=== PATIENT | female | born 1970 | race Caucasian/White ===

== ENCOUNTER → 2016-06-21 | Outpatient (CLI) | payer SELFPAY | END | disposition home or self-care (01) | LOC: LABWHC1 15:51 | PROVIDERS: ATTEND Obstetrics & Gynecology | DX: N83.8 Other noninflammatory disorders of ovary, fallopian tube and broad ligament (principal) | CPT/HCPCS: 36415; 86304 ==

== ENCOUNTER → 2016-07-17 | Outpatient (CLI) | payer BC ==
--- NOTE | 2016-07-17 20:36 | CONS ---
DATE OF CONSULTATION: 07/17/2016 REASON FOR CONSULTATION: Obstructive sleep apnea/insomnia. A 45-year-old female patient, a primary of Dr. Ernesto Ortiz is coming in with multiple complaints. The patient reports having very poor sleep quality. She has been having this problem for many years. She has been suffering from chronic anxiety and depression and occasional panic attacks. She was morbidly obese in the past and she has undergone gastric bypass surgery. She lost more than 100 pounds. 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 She is having issues with maintaining a good sleep schedule. There are certain days where the patient cannot sleep for more than a few hours and other days when she wants to sleep much more. She typically goes to bed between 9:00 p.m. and midnight, and she wakes up at 4 to 6:00 a.m. in the morning. She averages around 4 to 6 hours of sleep and sometimes it takes more than 30 minutes to fall sleep. She gets anxious. Her mind races and she gets different thoughts which prevent her from going to sleep and this makes her quite anxious. She also has history of sleepwalking and night terrors. Occasionally she has also nightmares over the years. She grind her teeth and she wears a bite block in that regard. She has positive family history for obstructive sleep apnea. She has been taking a combination of Lexapro and Xanax for anxiety. She takes 10 mg of Ambien to help her for sleep induction and maintenance. She is hypothyroid and she is on thyroid hormone replacement. Her current [place] score is 11. No reflux. No heartburn. No chest pain. No shortness of breath during sleep. She does snore. Unsure if she quits breathing at night. PAST MEDICAL HISTORY: 1. Depression/anxiety/panic. 2. Hypertension. 3. Obesity status post gastric bypass surgery. 4. Hypertension. 5. Hypothyroidism. 6. Grinding of the teeth/bruxism. Surgical history includes gastric bypass surgery, cholecystectomy and surgery on a broken tibia and fibula. SOCIAL HISTORY: The patient is a smoker one pack of cigarettes a day. She drinks beer 2 to 3 times a week. No history of substance abuse. She drinks coffee in excess, more so in the morning and not in the afternoon or evening time. FAMILY HISTORY: Positive for sleep apnea. REVIEW OF SYSTEMS: Twelve-point review of systems was done. Positive findings are all mentioned above in the history of present illness. Outpatient medications include: 1. Synthroid 0.125 mcg p.o. daily. 2. ( ) 25 mcg p.o. daily. 3. Ambien 10 mg at bedtime. 4. Cytomel 10 mg daily. 5. Lexapro 40 mg p.o. daily. 6. Lisinopril 10 mg p.o. daily. 7. Omeprazole 40 mg p.o. daily. DRUG ALLERGIES NOT KNOWN. BP is 125/75, pulse 66, respirations 16, temperature 98.7, saturation 99% on room air. Weight is 197. Height is 63 inches. De Graff score is 11. Neck size 14 inches, BMI is 34.8. Weight is 197. Height is 63 inches. GENERAL APPEARANCE: Calm, comfortable. HEENT: Mallampati Class IV. There is no goiter, neck mass. LUNGS: Clear to auscultation. HEART: Sounds are regular rate and rhythm. Normal S1, S2, no S3, no murmurs. ABDOMEN: Soft, nontender. No organomegaly. EXTREMITIES: No edema, cyanosis, or clubbing. IMPRESSION: Poor sleep quality with various factors affecting this patient's sleep in general, more significant contributing factors are A) Chronic anxiety/panic; B) Occasional sleepwalking and night terrors; C) Nightmares, D) Bruxism and E) Possible obstructive sleep apnea. In addition, the patient is suspected to have a component of insomnia, which is a comorbid insomnia related to her various comorbidities most significant of which are depression and anxiety and panic. PLAN: 1. Will proceed with a screening polysomnogram to rule out obstructive sleep apnea and at the same time, will assess the patient's sleep quality, sleep architectures, sleep maintenance and sleep fragmentation. Based on that, will make further recommendations regarding treatment. 2. Keep Ambien for now. 3. Encourage regulating sleep hygiene as much as possible. 4. Avoid alcoholic beverages late at nighttime. 5. Avoid caffeine intake after 2:00 p.m. every day. 6. Will continue to follow and make further recommendations based on results of the sleep study.
== END | disposition home or self-care (01) ==
LOC: SLEEP 15:45
PROVIDERS: ATTEND Internal Medicine Critical Care Medicine
DX: G47.33 Obstructive sleep apnea (adult) (pediatric) (principal); G47.10 Hypersomnia, unspecified; G47.00 Insomnia, unspecified; F41.8 Other specified anxiety disorders; F32.9 Major depressive disorder, single episode, unspecified; F41.0 Panic disorder [episodic paroxysmal anxiety]; F17.200 Nicotine dependence, unspecified, uncomplicated; Z79.899 Other long term (current) drug therapy; F51.3 Sleepwalking [somnambulism]; F51.4 Sleep terrors [night terrors]; I10 Essential (primary) hypertension; E03.9 Hypothyroidism, unspecified; E66.9 Obesity, unspecified; Z68.34 Body mass index [BMI] 34.0-34.9, adult; Z98.84 Bariatric surgery status
CPT/HCPCS: 99211

== ENCOUNTER → 2016-07-30 | Outpatient (CLI) | payer BC ==
--- NOTE | 2016-07-30 07:49 | US ---
EXAMINATION TYPE: US pelvis complete transvag DATE OF EXAM: 07/30/2016 7:35 AM COMPARISON: CT in PACS CLINICAL HISTORY: N83.[address] Previous ovarian cysts. ABN CT and pt states ABN US at different facility TECHNIQUE: Transvaginal (TV) and Transabdominal (TA) Date of LMP: 2014 EXAM MEASUREMENTS: Uterus: 6.0 x 3.4 x 4.0 cm Endometrial Stripe: 0.5 cm Left Ovary: 2.9 x 1.9 x 1.9 cm Findings: 1. Uterus: Retroverted Heterogeneous 2. Endometrium: wnl 3. Right Ovary: Normal right ovarian tissue not identified 4. Left Ovary: Hypoechoic nodule measuring 1.7 x 1.6 x 1.5 cm 5. Bilateral Adnexa: Right adnexa shows solid mass= 6.3 x 4.5 x 6.1 cm/ Unable to determine if this is a pedunculated fibroid vs. right ovarian mass 6. Posterior cul-de-sac: wnl IMPRESSION: 1. 6.3 cm right adnexal mass. Due to its size and is difficult to differentiate by ultrasound between pedunculated fibroid versus ovarian mass recommend follow-up MRI and correlate clinically. 2. Uterus is diffusely heterogeneous in echotexture which can be seen with diffuse fibroid change but is nonspecific. 3. Simple appearing left ovarian cyst measuring 1.7 cm.
== END | disposition home or self-care (01) ==
LOC: RADUSWWP 07:06
PROVIDERS: ATTEND Obstetrics & Gynecology
DX: N83.202 Unspecified ovarian cyst, left side (principal); N83.201 Unspecified ovarian cyst, right side
CPT/HCPCS: 76830; 76856

== ENCOUNTER → 2016-09-25 | Outpatient (CLI) | payer BC ==
--- NOTE | 2016-09-26 08:31 | PN ---
45-year-old female patient coming in to discuss the results of the sleep study, as mentioned earlier, the patient is obese and she has lost 100 pounds following gastric bypass surgery. 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 He is currently settled in [place]. She was having difficulties with her sleep quality in general and part of her concern was sleep breathing disorder. The patient takes Ambien 10 mg at bedtime. She is known to have a lot of anxiety, stress as the patient is dealing with dementia in her and she herself has uterine lesion for which she will undergo a hysterectomy. Her current medications include: 1. Lexapro. 2. Wellbutrin. 3. Ambien. 4. Xanax. These are mainly to treat her anxiety, depression and improve her sleep quality. She is also on Levoxyl hypothyroidism and she takes Prilosec for GERD. Lisinopril for hypertension. I reviewed the sleep study. There is no evidence of any sleep breathing disorder. The patient's AHI is less than 5. The patient has adequate sleep efficiency at 88%. The patient has moderately severe periodic limb movements that may need to be addressed knowing that she claims that her sleep was fragmented and her sleep quality remains poor and she moves, tosses and turns and restless at night. Her current [place] score is 14. Her current vital signs: Her blood pressure is 118/73, pulse is 88, respirations 16, [place] score is 14, temperature 98.3, saturation 93% on room air. Weight is 199. GENERAL APPEARANCE: Calm, comfortable. HEENT: Negative for goiter or neck masses. LUNGS: Clear to auscultation. HEART: Sounds are regular rate and rhythm. Normal S1, S2. No S3, no S4. No murmurs. ABDOMEN: Soft, nontender. No organomegaly. EXTREMITIES: No clubbing. No cyanosis or clubbing. IMPRESSION: 1. No evidence of any sleep breathing disorder. Apnea-hypopnea index is less than 5. 2. Moderate to severe periodic limb movements may cause some sleep fragmentation and frequent nocturnal arousals. 3. Adequate sleep efficiency at 88%. 4. Adequate sleep architecture based on a sleep study. 5. Hypothyroidism. 6. Increased anxiety and some degree of depression. The patient has significant amount of stress due to social factors and personal and family related medical complications. 7. Hypertension. 8. Nightmares. 9. Anxiety/panic attacks. 10. Bruxism, still wearing a bite guard. PLAN: 1. Continue wearing the bite guard. 2. Continue using Ambien for sleep induction and maintenance. 3. Continue Xanax and Lexapro Wellbutrin regarding anxiety and depression. The patient is working with [facility] and sees a counselor. 4. In regard to restless leg we will give the patient a trial of Requip 1 mg at bedtime. This will hopefully improve her sleep maintenance and prevent some of the arousals that could be related to periodic limb movements. 5. Encourage weight loss. 6. Implement good sleep hygiene measures. 7. We will continue to follow.
== END | disposition home or self-care (01) ==
LOC: SLEEP 15:59
PROVIDERS: ATTEND Internal Medicine Critical Care Medicine
DX: Z73.3 Stress, not elsewhere classified (principal); E66.9 Obesity, unspecified; Z98.84 Bariatric surgery status; F41.9 Anxiety disorder, unspecified; F32.9 Major depressive disorder, single episode, unspecified; K21.9 Gastro-esophageal reflux disease without esophagitis; E03.9 Hypothyroidism, unspecified; Z79.899 Other long term (current) drug therapy; I10 Essential (primary) hypertension; F51.5 Nightmare disorder; F41.0 Panic disorder [episodic paroxysmal anxiety]; G47.63 Sleep related bruxism; G25.81 Restless legs syndrome

== ENCOUNTER → 2016-09-26 | Outpatient (CLI) | payer BC ==
[2016-09-26 11:00] LABS: Basophils # (A) 0.1 k/uL (0-0.2); Basophils % (A) 1 %; CH 29.1; CHCM 31.4; Eosinophils # (A) 0.2 k/uL (0-0.7); Eosinophils % (A) 4 %; HCT 41.4 % (34.0-46.0); HDW 2.33; HGB 13.1 gm/dL (11.4-16.0); Luc # (Auto) 0.12; Luc % (Auto) 2; Lymphocytes # (A) 2.4 k/uL (1.0-4.8); Lymphocytes % (A) 39 %; MCH 29.3 pg (25.0-35.0); MCHC 31.6 g/dL (31.0-37.0); MCV 92.9 fL (80.0-100.0); Mean Platelet Volume 7.3; Monocytes # (A) 0.3 k/uL (0-1.0); Monocytes % (A) 5 %; Neutrophils % (A) 50 %; RBC 4.46 m/uL (3.80-5.40); RDW 15.4 % (11.5-15.5); WBC 6.1 k/uL (3.8-10.6); WBC (Perox) 6.48
[2016-09-26 11:41] LABS: Anion Gap 10 mmol/L; Blood Urea Nitrogen 13 mg/dL (7-17); Calcium 9.6 mg/dL (8.4-10.2); Carbon Dioxide 25 mmol/L (22-30); Chloride 105 mmol/L (98-107); Glucose 76 mg/dL (74-99); Non-African American GFR(MDRD) >60 (>60 ml/min/1.73 sqM); Potassium 4.9 mmol/L (3.5-5.1); Sodium 140 mmol/L (137-145)
== END ==
LOC: LABWHC1 09:45
PROVIDERS: ATTEND Obstetrics & Gynecology
DX: Z01.818 Encounter for other preprocedural examination (principal)
CPT/HCPCS: 36415; 80048; 85025

== ENCOUNTER 2016-10-01 06:13 | Inpatient (IN) | payer BC ==
[2016-09-28 11:07] VITALS: BMI 33.6
[~2016-10-01 06:13] MED LIST: DEXAMETHASONE SOD PHOSPHATE 10 MG/ML 1 ML VIAL IV ONE; LIDOCAINE 1% 20 ML VIAL (10MG/ML) FOR IV START INTRADERMA PRN; MIDAZOLAM 2 MG/2 ML VIAL IV PRN; ONDANSETRON 4 MG/2 ML VIAL IVP ONE; Pre Op ABX Message 1 EACH MISC MISCELLANE ONE; SCOPOLAMINE 1.5MG/72HR PATCH TRANSDERM ONE
[2016-10-01] MEDS: LACTATED RINGERS 1,000 ML IV SCH ×2 (06:53→11:35)
--- NOTE | 2016-10-01 07:36 | P.HPOB ---
History of Present Illness H&P Date: 10/01/16 Chief Complaint: Pelvic mass with pain Inga is a 46-year-old female with a [address] and ultrasound cannot differentiate between ovarian cyst versus potential . Initially they thought it was a fibroid but further studies indicated they thought that it was a complex ovarian cyst. CA-125 level was drawn and was normal. She is having severe pain that is unremitting and is only marginally controlled with [place]. She is therefore scheduled for exploratory laparotomy with possible RSO versus TVH/RSO versus TVH/BSO. Risks/benefits/alternatives to this procedure were discussed with the patient in detail and all questions are answered for her prior to proceeding to the operating room. Risks did include but were not limited to damage to bladder, bowel, vascular injuries, ureteral damage, bleeding, infection and nerve injury. She's had multiple abdominal surgeries which increases her risk of these particularly if there is any adhesions present. On physical exam her vital signs are stable and afebrile. Heart regular, lungs clear, extremities without pain. Osteopathic exam is unremarkable. Pelvic exam reveals fullness in her adnexa however no other findings are present. Assessment pelvic mass. Plan exploratory laparotomy with treatments as above. Past Medical History Past Medical History: Hypertension, Thyroid Disorder History of Any Multi-Drug Resistant Organisms: None Reported Past Surgical History: Bariatric Surgery, Cholecystectomy, Orthopedic Surgery Additional Past Surgical History / Comment(s): Brittney-En Y Bypass surgery, R lower extrem with a modesta. Past Anesthesia/Blood Transfusion Reactions: No Reported Reaction Past Psychological History: No Psychological Hx Reported Smoking Status: Current every day smoker Past Alcohol Use History: Occasional Past Drug Use History: None Reported - Past Family History Mother Family Medical History: No Reported History Medications and Allergies Home Medications Medication Instructions Recorded Confirmed Type Escitalopram [Lexapro] 20 mg PO DAILY 04/27/16 10/01/16 History Levothyroxine Sodium [Levoxyl] 150 mcg PO DAILY 04/27/16 10/01/16 History Liothyronine Sodium [Cytomel] 5 mcg PO DAILY 04/27/16 10/01/16 History Lisinopril [Zestril] 20 mg PO DAILY 04/27/16 10/01/16 History Omeprazole 20 mg PO DAILY 04/27/16 10/01/16 History amLODIPine [Norvasc] 2.5 mg PO DAILY 04/27/16 10/01/16 History Wellbutrin( Unknown Dose) 1 tab PO DAILY 09/28/16 10/01/16 History Allergies Allergy/AdvReac Type Severity Reaction Status Date / Time codeine Allergy Nausea & Verified 10/01/16 06:23 Vomiting morphine Allergy Nausea & Verified 10/01/16 06:23 Vomiting Exam Osteopathic Statement: *. No significant issues noted on an osteopathic structural exam other than those noted in the History and Physical/Consult. - Vital Signs Vital signs: Vital Signs Temp Pulse Resp BP Pulse Ox 10/01/16 06:41 98.2 F 72 18 124/81 98 - OBG Physical Exam Breast: both: normal (no masses) Abdomen: bowel sounds normal (Mild to moderate tenderness present particularly in the right lower quadrant), no diffuse tenderness, no bruit present, no guarding noted, no hepatomegaly, no splenomegaly, no mass Abdomen detail: right lower quadrant: mass Vulva: both: normal Vagina: normal moisture, no discharge Cervix: no lesion, no discharge Uterus: normal size, normal contour Adnexa: right: mass (Ovarian mass versus ventilatory fibroid)
[2016-10-01] MEDS ORDERED: KETOROLAC 30 MG/ML 1 ML VIAL ONE (07:43)
[2016-10-01] MEDS ORDERED: PROPOFOL 10 MG/ML 20 ML VIAL IV ONE (07:43)
[2016-10-01] MEDS ORDERED: HYDROmorphone (PF) 1 MG/ML ONE (07:43)
[2016-10-01] MEDS ORDERED: fentaNYL (PF) 50 MCG/ML 2 ML AMP ONE (07:43)
[2016-10-01] MEDS ORDERED: SUCCINYLCHOLINE CHLORIDE 100 MG/5 ML SYR IV ONE (07:43)
[2016-10-01] MEDS ORDERED: NEOSTIGMINE 1 MG/ML 10 ML VIAL ONE (07:43)
[2016-10-01] MEDS ORDERED: LIDOCAINE 1% INJ 10MG/ML (20 ML MDV) ONE (07:43)
[2016-10-01] MEDS ORDERED: ROCURONIUM BROMIDE 10 MG/ML 10 ML VIAL IV ONE (07:43)
[2016-10-01] MEDS ORDERED: GLYCOPYRROLATE 0.2 MG/ML 2 ML VIAL ONE (07:43)
[2016-10-01] MEDS ORDERED: MIDAZOLAM 2 MG/2 ML VIAL ONE (07:43)
[2016-10-01] MEDS ORDERED: LACTATED RINGERS 1,000 ML IV ONE (08:28)
[2016-10-01] MEDS ORDERED: diphenhydrAMINE 50 MG/ML 1 ML VIAL IVP PRN (09:11)
[2016-10-01] MEDS ORDERED: KETOROLAC 30 MG/ML 1 ML VIAL IVP PRN (09:11)
[2016-10-01] MEDS ORDERED: SIMETHICONE 80 MG CHEWABLE PO PRN (09:11)
[2016-10-01] MEDS ORDERED: ONDANSETRON 4 MG/2 ML VIAL IVP PRN (09:11)
[2016-10-01] MEDS ORDERED: NALOXONE 0.4 MG/ML 1 ML VIAL IV PRN (09:12)
--- NOTE | 2016-10-01 09:19 | P.OP ---
Date of Procedure: 10/01/16 Preoperative Diagnosis: Pelvic mass and pain Postoperative Diagnosis: Same large endometrioma noted Procedure(s) Performed: Total abdominal hysterectomy with right salpingo-oophorectomy Anesthesia: DWAYNE Surgeon: Phong Simpson Registered Vascular Technologist (Rvt) #1: Krystle Newton Estimated Blood Loss (ml): 150 IV fluids (ml): 1,500 Urine output (ml): 100 Pathology: other (Uterus and cervix and right ovary and tube) Condition: stable Disposition: floor Operative Findings: Normal left ovary. Very small uterus with very large right ovarian endometrioma Description of Procedure: Patient was taken to the operating suite where a general anesthetic was found be adequate. She was prepped and draped in the normal sterile fashion and placed in dorsal supine position. Initially a Pfannenstiel skin incision was made. This incision was then carried through to the underlying layer of the fashion with second knife. Fascia was then nicked in the midline and this opening was extended laterally with Braxton scissors. Superior and inferior aspect of this incision were then grasped tented up and bluntly and sharply dissected off the rectus muscles. X muscle then divided midline and blunt dissection through the peritoneum was made. This opening was then extended superiorly and inferiorly with good visualization of both bowel bladder. Bladder blade was then placed with a self-retaining retractor. Bowels packed out of the operative field observations pelvis were noted. Initially a large fluctuant mass was noted on the right-hand side and posteriorly all the way into the deep cul-de-sac. With blunt dissection we were able to free the tissue however the large endometrioma on what did rupture and approximately 1 L of fluid was then used to irrigate the area. Once this was accomplished we're able to identify the uterus and left tube. As the endometrium was actually on the uterus likely part of the endometrial was tube that had grown attached through scarring to the uterus we were able to elevate the ovary and tube and clamp behind it identifying the infundibular pelvic ligament. Realistically visualization of the ureter was not possible suite stay very close to the ovary and well away from the pelvic sidewall. Clamping with Heaneys cutting and tying this the tissue down all the way across the posterior aspect of the ovary was performed to free it from the posterior cul-de-sac and sidewall at this point grasping we did excise the ovarian endometrioma and what I suspect is tube complex however some bleeding is noted on the lateral borders of the uterus and therefore a hysterectomy is performed to maintain excellent hemostasis throughout. The uterus was then grasped bilaterally by the adnexa with long Tawny clamps and elevated a Maritza clamp was then used to on the left side clamp over the tubal segment and round ligament segment tissues clamped cut and tied at this point we did identify the bladder elevated the tissue and incise the vesicouterine peritoneum extending this opening across the face the uterus to move about bladder out of the operative field Maritza clamps were then used to bilaterally clamp over the uterine vessels. Tissues clamped and tied moving inferiorly through the round cardinal ligaments tissues clamped cut and tied to to get level of the vaginal cuff which was entered and the uterus was removed. The vaginal cuff was then closed with 0 Vicryl suture in a running fashion at this point thorough irrigation of the pelvis was done using almost 2 L of ear irrigation. No significant bleeding is noted from any of the pedicles left ovary appears normal. Therefore suture was cut we did dry the area and reevaluate and still no bleeding is noted therefore instruments are removed as is bowel packing. Peritoneal layer was then closed with 0 Vicryl suture fascial layer was closed with 0 Vicryl suture one layer of 3-0 Vicryl was placed in deep subcuticular tissues to approximately 8 skin and close the space and then the skin was closed Giorgi. Sponge, lap, needle counts were all correct 2. Patient was then taken to the recovery room in stable and satisfactory condition.
[2016-10-01] MEDS: HYDROmorphone 1 MG/ML 1 ML SYRINGE IVP PRN ×4 (09:21→09:57)
[2016-10-01] MEDS: HYDROmorphone PCA 5 MG/25 ML SYRINGE IV PRN ×2 (11:18→17:31)
[2016-10-01] MEDS: SENNOSIDES-DOCUSATE SODIUM 1 EACH TAB PO SCH (20:37)
[2016-10-02] MEDS: HYDROmorphone PCA 5 MG/25 ML SYRINGE IV PRN ×3 (03:14→22:25)
[2016-10-02 06:41] LABS: Basophils % (A) 0 %; CHCM 32.1; Eosinophils % (A) 0 %; HCT 36.7 % (34.0-46.0); HDW 2.33; HGB 11.6 gm/dL (11.4-16.0); Luc # (Auto) 0.17; Luc % (Auto) 2; Lymphocytes # (A) 2.7 k/uL (1.0-4.8); Lymphocytes % (A) 30 %; MCH 28.5 pg (25.0-35.0); MCHC 31.5 g/dL (31.0-37.0); MCV 90.6 fL (80.0-100.0); Mean Platelet Volume 7.3; Monocytes # (A) 0.6 k/uL (0-1.0); Monocytes % (A) 7 %; Neutrophils # (A) 5.6 k/uL (1.3-7.7); Neutrophils % (A) 61 %; RBC 4.05 m/uL (3.80-5.40); RDW 15.4 % (11.5-15.5); WBC 9.1 k/uL (3.8-10.6); WBC (Perox) 9.29
[2016-10-02] MEDS: SENNOSIDES-DOCUSATE SODIUM 1 EACH TAB PO SCH ×2 (08:34→21:25)
--- NOTE | 2016-10-02 09:11 | P.PN ---
Progress Note - Text Sho seen and evaluated. She is postop day 1 from an abdominal hysterectomy. She is angling, voiding and she is tolerating her diet. She voices no complaints other than some gas pressure and pain in her neck and shoulders likely due to positioning during surgery. She has not passed flatus at this time. We'll plan to ambulate her more and she is encouraged to use her trifocal. Her vital signs are otherwise stable and she is afebrile. Heart regular, lungs clear, extremities without pain. Abdomen is soft and her bowel sounds noted. Plan removal of dressing tomorrow with possible staple removal tomorrow versus Saturday. All other questions are answered for her at this time and she is stable at this time.
[2016-10-02] MEDS ORDERED: LACTULOSE 20 GM/30 ML CUP PO PRN (17:18)
[2016-10-02 18:24] VITALS: RESP 16
--- NOTE | 2016-10-03 07:57 | P.DS ---
Providers Date of admission: 10/01/16 09:06 Expected date of discharge: 10/03/16 Attending physician: Phong Simpson Consults: 10/02/16 14:05 Consult Physician Routine Consulting Provider: Betsy Dean Consult Reason/Comments: Medical Management Do you want consulting provider notified?: Yes Primary care physician: Stated None Hospital Course: Sho doing very well this morning postop day 2. She is ambulating, voiding and she is tolerating her diet. She also had a bowel movement this morning. Will plan discharged home today. Prescription for Motrin and Friona has been provided. She is aware to have no heavy lifting, limit stairs and driving and pelvic rest. She is also aware should she have any high temperatures, heavy bleeding, or severe pain she needs to call my office or report back to the emergency room. All the questions are answered for her at this time. She'll follow up with me on Saturday for stable removal. Vital signs are stable afebrile. Heart regular, lungs clear, extremities without pain. Abdomen is soft incision is clean dry and intact. Extremities are without pain. There are positive bowel sounds noted. Assessment postop day 2 from a total abdominal hysterectomy with right salpingo- oophorectomy secondary to mass Plan discharged home follow me on Saturday for stable removal Patient Condition at Discharge: Good Plan - Discharge Summary New Discharge Prescriptions: HYDROcodone/APAP 5-325MG [Friona 5-325] 1 tab PO Q4HR PRN #30 tab PRN Reason: Pain Ibuprofen [Motrin] 600 mg PO Q6HR PRN #30 tab PRN Reason: Pain Discharge Medication List Escitalopram [Lexapro] 20 mg PO DAILY 04/27/16 [History] Levothyroxine Sodium [Levoxyl] 150 mcg PO DAILY 04/27/16 [History] Liothyronine Sodium [Cytomel] 5 mcg PO DAILY 04/27/16 [History] Lisinopril [Zestril] 20 mg PO DAILY 04/27/16 [History] Naproxen 500 mg PO Q12HR 14 Days 04/27/16 [Rx] Omeprazole 20 mg PO DAILY 04/27/16 [History] Ondansetron Odt [Zofran ODT] 4 mg PO Q8HR PRN #15 tab 04/27/16 [Rx] amLODIPine [Norvasc] 2.5 mg PO DAILY 04/27/16 [History] buPROPion XL [Wellbutrin Xl] 300 mg PO DAILY 10/01/16 [History] HYDROcodone/APAP 5-325MG [Friona 5-325] 1 tab PO Q4HR PRN #30 tab 10/03/16 [Rx] Ibuprofen [Motrin] 600 mg PO Q6HR PRN #30 tab 10/03/16 [Rx] Follow up Appointment(s)/Referral(s): Phong Simpson DO [Doctor of Osteopathic Medicine] - 10/05/16
[2016-10-03] MEDS ORDERED: HYDROcodone/APAP 5-325MG 1 EACH TAB PO PRN (08:00)
[2016-10-03 08:43] VITALS: BP 122/78; PULSE 77
[2016-10-03] MEDS: SENNOSIDES-DOCUSATE SODIUM 1 EACH TAB PO SCH (09:07)
[2016-10-03 09:26] VITALS: TEMP 98.6
== END 2016-10-03 11:00 | disposition home or self-care (01) | DRG 743 ==
LOC: OR 06:13 → 6PED 09:06
PROVIDERS: ADMIT Obstetrics & Gynecology; ATTEND Obstetrics & Gynecology
PROC: 0UTC0ZZ Resection of Cervix, Open Approach (ICD-10-PCS; 2016-10-01)
PROC: 0UT50ZZ Resection of Right Fallopian Tube, Open Approach (ICD-10-PCS; 2016-10-01)
PROC: 0UT00ZZ Resection of Right Ovary, Open Approach (ICD-10-PCS; 2016-10-01)
PROC: 0UT90ZZ Resection of Uterus, Open Approach (ICD-10-PCS; principal; 2016-10-01 07:45)
DX: N80.1 Endometriosis of ovary (principal); I10 Essential (primary) hypertension; E07.9 Disorder of thyroid, unspecified; Z90.49 Acquired absence of other specified parts of digestive tract; F17.200 Nicotine dependence, unspecified, uncomplicated; Z79.1 Long term (current) use of non-steroidal anti-inflammatories (NSAID); Z79.899 Other long term (current) drug therapy
CPT/HCPCS: 36415; 80048; 81025; 85025; 86850; 86900; 86901; 88305; 88307